=== PATIENT | female | born 1965 | race American Indian/Alaskan Native ===

== ENCOUNTER 2016-11-30 17:36 | Emergency (ER) | payer MEDICAID ==
[2016-11-30 18:31] VITALS: BP 136/76
== END 2016-12-01 04:07 | disposition left against medical advice (07) ==
LOC: ED 17:36
DX: M54.9 Dorsalgia, unspecified (principal); K59.00 Constipation, unspecified; Z53.21 Procedure and treatment not carried out due to patient leaving prior to being seen by health care provider